=== PATIENT | male | born 1965 ===

== ENCOUNTER 2019-08-21 12:55 | Emergency (ER) | payer SELFPAY ==
[2019-08-21 12:56] VITALS: BP 134/94; PULSE 81; RESP 18; TEMP 36.4; O2SAT 96; BMI 27.8
--- NOTE | 2019-08-21 12:57 | ED_ITS ---
Entered by Natalee Mathis, acting as scribe for HPI - Fall General: Chief Complaint: Fall Stated Complaint: Fall Time Seen by Provider: 08/21/19 13:08 Source: patient Mode of arrival: ambulatory Limitations: no limitations History of Present Illness: HPI Narrative: 53 yo male presents with L rib pain post fall. pt states while at his apartment he was walking, slipped on water and fell. pt states it hurts to move or take a deep breath. pt denies any other symptoms at this time. no LOC. MD complaint: fall Onset (ago): minute(s) (just [employer]) Fall from: standing and down stairs (#) (5) Fall witnessed: yes, by bystander (co workers) Place fall occurred: work Loss of consciousness: None Symptoms prior to fall: none Context: tripped/slipped (wet floor) Location of injury: other (L rib and L side) Severity: moderate Quality: sharp Associated symptoms-after fall: Reports no associated symptoms; Denies confusion, difficulty walking, headache(s), hematuria, neck pain or vertigo Review of Systems Const: Denies: fever, chills, body aches, fatigue, malaise or night sweats Eyes: Denies: change in vision or blurry vision ENMT: Denies: throat pain, oral sores/lesions, dental pain, nasal discharge or nasal congestion Card: Denies: palpitations, irregular heart rhythm, edema, syncope, shortness of breath on exertion, shortness of breath when lying down or leg pain with exertion Resp: Denies: productive cough, non-productive cough or wheezing GI: Denies: nausea, vomiting, vomiting blood, coffee grounds in vomit, difficulty swallowing, heartburn/indigestion, diarrhea, constipation, cramping, blood in stool or black tarry stool : Denies: flank pain, difficulty urinating, painful urination, urinary frequency, urinary urgency, urinary incontinence or blood in urine Musc: Denies: neck pain, back pain, extremity pain, extremity swelling, joint pain or joint swelling Skin/Breast: Denies: rash, itching or redness Neuro: Denies: headache, numbness in extremities, weakness in extremities, changes in sensation, lack of coordination, difficulty walking, frequent falls, dizziness, vertigo or confusion Psych: Denies: anxiety, depression, loss of interest, visual hallucinations, auditory hallucinations, suicidal ideation or homicidal ideation Endo: Denies: excessive urination, excessive thirst, tired all the time or cold intolerance Jese/Lymph: Denies: easy bruising, easy bleeding, petechiae, enlarged lymph nodes or tender lymph nodes PFSH ED PFSH: Statuses (acute, chronic, etc) shown below reflect problem list status as previously entered and may not be historically accurate Social History Smoking and tobacco status: current every day smoker Physical Exam Const: COMMON NORMALS: average body habitus, oriented x3 and alert GENERAL APPEARANCE: cooperative, comfortable, well kempt and well developed NUTRITIONAL APPEARANCE: obese ORIENTATION/CONSCIOUSNESS: Yes awake, Yes oriented to person and Yes oriented to place HENMT: COMMON NORMALS: normocephalic, head/scalp atraumatic, EAC's normal, TM's normal bilaterally, external nose normal, moist oral mucous membranes and oropharynx normal HEAD & SCALP: normocephalic and atraumatic NOSE: external nose normal EXTERNAL AUDITORY CANAL: EAC's normal TYMPANIC MEMBRANE: TM's normal bilaterally MOUTH: oral and palatal mucosa normal, lip normal and tongue normal THROAT: posterior oropharynx normal and tonsils normal Eye: COMMON NORMALS: PERRL, EOMs intact bilaterally, conjunctivae normal and no scleral icterus CONJUNCTIVA: Yes conjunctivae normal PUPIL: Yes PERRL Neck/C-Spine: COMMON NORMALS: full ROM, no lymphadenopathy, supple, no meningeal signs and thyroid normal THYROID: thyroid normal and asymmetrical Lymph: LYMPHATIC: no lymphadenopathy noted Resp: COMMON NORMALS: normal respiratory effort, no retractions, no use of accessory muscles and clear to auscultation bilaterally AUSCULTATION: clear to auscultation bilaterally Cardio: COMMON NORMALS: regular rate and regular rhythm RATE: regular rate RHYTHM: regular rhythm HEART SOUNDS: no murmurs GI: COMMON NORMALS: normal to inspection, nondistended, normoactive bowel sounds, soft to palpation and no hepatosplenomegaly PALPATION: Yes soft and Yes no hepatosplenomegaly : COMMON NORMALS: Yes no CVA tenderness BLADDER/KIDNEY EXAM: Yes no CVA tenderness Back/Pelvis: COMMON NORMALS: no CVA tenderness LUMBAR SPINE/LOWER BACK: Yes normal to inspection Extremity: COMMON NORMALS: no clubbing, cyanosis or edema, no calf tenderness and no pedal edema Neuro: COMMON NORMALS: oriented x3 SENSORIUM/ORIENTATION: Yes alert, Yes oriented to person and Yes oriented to place MENINGEAL SIGNS: Yes no meningeal signs Psych: APPEARANCE: Yes well kempt Skin: COMMON NORMALS: no rashes or lesions noted and skin turgor normal GENERAL SKIN EXAM: no rashes or lesions noted and turgor normal Course ED course: Radiologist reading the films no acute fracture. Patient had severe pain even with light touch to the skin over the area of concern. Discharge home off work 2 days follow-up with his primary care doctor for release to work Vital Signs: Vital signs: Vital Signs Temperature 97.6 F 08/21/19 12:56 Pulse Rate 87 08/21/19 14:18 Respiratory Rate 16 08/21/19 14:18 Blood Pressure 110/77 08/21/19 14:18 Pulse Oximetry 100 08/21/19 14:18 Discharge Plan Discharge Patient Disposition: Home, Self-Care Clinical Impression: Fall Qualifiers: Encounter type: initial encounter Qualified Code(s): W19.XXXA - Unspecified fall, initial encounter Contusion of rib on left side Qualifiers: Encounter type: initial encounter Qualified Code(s): S20.212A - Contusion of left front wall of thorax, initial encounter Condition: Stable Prescriptions: No Action No Known Home Medications RF: 0 Discharge Orders: Discharge Order (Routine); Ordered 08/21/19 Ordered By: Andre Tyler Referrals: Luci Ruth DO [Primary Care Provider] - Parish Mirza APN [Family Provider] - Discharge Diet: Usual diet Discharge Activity: Increase activity as tolerated Activity Restrictions/Additional Instructions: Follow-up with your doctor in 2 to 3 days. Return to work when released by them. [id number] analgesics as needed for rib pain as well as ice and heat to the affected areas. Discharge Date/Time: 08/21/19 14:19 Coding Level of Care Code ED Silk Spooler for Chg Fwd Exam Problem Focused The documentation recorded by the Del jones Bridget Annette, accurately reflects the service I personally performed and the decisions made by Jayson sequeira Curtis L, DO Aug 21, 2019 12:55
--- NOTE | 2019-08-21 13:19 | XR_ITS ---
WS: [id number] Chest with left rib detail, 08/21/2019 Clinical Data: pain Comparison: None. Findings: The lungs show no nodules, masses, or effusions. The heart is normal. No pneumonia or pneumothorax is seen. The ribs are intact. No rib fractures seen. No subcutaneous emphysema is present. XR/XR ribs LT mn 3V w [id number] Impression: Negative chest with left rib detail.
[2019-08-21] MEDS: HYDROcodone-acetaminophen 5-325 mg Tablet 1 TAB PO (13:33)
[2019-08-21 14:18] VITALS: BP 110/77; PULSE 87; RESP 16; O2SAT 100
== END 2019-08-21 14:19 | disposition home or self-care (01) ==
PROVIDERS: Emergency Provider Family Medicine; Family Provider Nurse Practitioner Family; PCP Family Medicine
DX: S20.212A Contusion of left front wall of thorax, initial encounter (principal); W01.0XXA Fall on same level from slipping, tripping and stumbling without subsequent striking against object, initial encounter; F17.210 Nicotine dependence, cigarettes, uncomplicated
CPT/HCPCS: 71101; 99281; 99282

== ENCOUNTER → 2019-11-05 10:36 | Outpatient (BNVA) | payer OTHER, SELFPAY | PROVIDERS: Family Provider Nurse Practitioner Family; PCP Family Medicine; Visit Provider Family Medicine | DX: Z00.00 Encounter for general adult medical examination without abnormal findings (principal); D36.10 Benign neoplasm of peripheral nerves and autonomic nervous system, unspecified; B35.6 Tinea cruris; R61 Generalized hyperhidrosis; L73.9 Follicular disorder, unspecified | CPT/HCPCS: 80053; 80061; 83036; 85025; 86592; 87806 ==

== ENCOUNTER → 2020-01-11 11:04 | Outpatient (BNVA) | payer OTHER, SELFPAY | PROVIDERS: Family Provider Nurse Practitioner Family; PCP Family Medicine; Referring Provider Family Medicine; Visit Provider Orthopaedic Surgery | DX: R22.32 Localized swelling, mass and lump, left upper limb (principal) | CPT/HCPCS: 73130 ==